=== PATIENT | male | born 1950 | race Caucasian/White ===

== ENCOUNTER → 2016-12-25 | Day surgery (SDC) | payer BC ==
[2016-12-18 11:44] VITALS: Ht 185.4 cm; Wt 70.5 kg
[~2016-12-25] VITALS: Ht 185.4 cm; Wt 70.5 kg
[~2016-12-25] MED LIST: LIDOCAINE HCL 2% 2 ML VIAL (20MG/ML) ONE; LVT/20 PO; ONDANSETRON INJ 2 MG/ML 2 ML VIAL ONE; PROPOFOL IV EMULSION 10 MG/ML 20 ML VIAL IV ONE; SODIUM CHLORIDE 0.9% 500ML 500 ML IV ONE
[2016-12-25 08:42] VITALS: TEMP 36.2
--- NOTE | 2016-12-25 09:27 | Endo History and Physical ---
History & Physical Date of Service: Dec 25, 2016. Chief Complaint: history of tubular adenoma, Family history of colon cancer (Mother) Referring Physician: Dr. Leonid Maldonado History of Present Illness 66 yo CM who presents for colonoscopy secondary to history of colon polyps and family history of colon cancer (mother). Past Surgical History Hx Cardiac Surgery: No Hx Internal Defibrillator: No Hx Pacemaker: No Hx Abdominal Surgery: No Hx of Implantable Prosthesis: No Hx Post-Op Nausea and Vomiting: No Hx Cancer Surgery: No Hx Thoracic Surgery: No Hx Orthopedic: No Hx Urinary Tract Surgery: No Family History Colon CA Social History Smoking Status: Never Smoker Hx Substance Use: No Hx Alcohol Use: No Allergies Coded Allergies: No Known Allergies (Verified , 12/25/16) Current Medications Reported Home Medications Medications Dose Route/Sig Max Daily Dose Days Date Category Levitra (Vardenafil HCl) 20 Mg Tab 20 Mg PO DIRECTED PRN 12/18/16 Reported Vital Signs Weight (Kilograms): 70.45 Height (Feet): 6 Height (Inches): 1 Date Time Temp Pulse Resp B/P Pulse Ox O2 Delivery O2 Flow Rate FiO2 12/25/16 08:42 36.2 82 20 151/94 99 Room Air Physical Exam General Appearance: WD/WN, no apparent distress Respiratory/Chest: Auscultation: breath sounds normal Cardiovascular: Heart Auscultation: RRR Abdomen: Bowel Sounds: normal Inspection & Palpation: soft, non-distended, no tenderness, guarding & rebound Assessment and Plan Assessment: 66 yo CM who presents for colonoscopy secondary to history of colon polyps and family history of colon cancer (mother). Plan: Proceed with colonoscopy.
--- NOTE | 2016-12-25 09:44 | Discharge Instructions ---
Endoscopy Patient Instructions Date / Procedure(s) Performed Dec 25, 2016. Colonoscopy Allergy Information Coded Allergies: No Known Allergies (Verified , 12/25/16) Discharge Date / Findings Dec 25, 2016. Colon polyp Internal hemorrhoids Medication Instructions OK to resume all medications today as prescribed Reported Home Medications Medications Dose Route/Sig Max Daily Dose Days Date Category Levitra (Vardenafil HCl) 20 Mg Tab 20 Mg PO DIRECTED PRN 12/18/16 Reported Provider Instructions Activity Restrictions - No exercising or heavy lifting for 24 hours. - Do not drink alcohol the day of the procedure. - Do not drive a car or operate machinery until the day after the procedure. - Do not make any important decisions or sign important papers in 24 hours after the procedure. Following Day: - Return to full activity which may include returning to work/school. Diet Start your diet with liquids and light foods (jello, soup, juice, toast). Then eat your usual diet if not nauseated. Treatment For Common After Affects For mild abdominal pain, bloating, or excessive gas: - Rest - Eat lightly - Lie on right side Follow-Up Information Follow-up with Dr. Leonid Maldonado as scheduled Anesthesia Information What You Should Know You have had a procedure that required some medicine to reduce anxiety and discomfort. This treatment is called moderate sedation. After receiving the treatment, you may be sleepy, but you will be able to breathe on your own. The effects of the treatment may last for several hours. Follow these instructions along with Activity/Diet recommendations noted above: * Do NOT do anything where dizziness or clumsiness would be dangerous. * Rest quietly at home today, then you can be up and about tomorrow. * Have a responsible person stay with you the rest of today. * You may have had an I.V. today. If so, you may take the dressing off later today. Recommendations Call your doctor if: * Trouble breathing * Continuous vomiting for more than 24 hours * Temperature above 101 degrees * Severe abdominal pain or bloating * Pain not relieved by pain medicine ordered * There is increased drainage or redness from any incision * A large amount of rectal bleeding greater than 2-3 tablespoons. (If you had a polyp/s removed or have hemorrhoids, a small amount of blood - from the rectum is to be expected.) * You have any unanswered questions or concerns. IN THE EVENT OF A SERIOUS EMERGENCY, GO TO THE NEAREST EMERGENCY ROOM Your discharge instructions were prepared by provider Yusuf Enamorado. Patient Instructions Signature Page Dean Thapa Patient (or Guardian) Signature/Date: I have read and understand the instructions given to me by my caregivers. Caregiver/RN/Doctor Signature/Date: The above-named patient and/or guardian has received patient instructions on this date. + Original Patient Signature Page (only) stays with chart. Please make copy for patient.
--- NOTE | 2016-12-25 09:47 | GI REPORT ---
Procedure Date: 12/25/2016 9:14 AM Procedure: Colonoscopy Indications: High risk colon cancer surveillance: Personal history of colonic polyps, Family history of colon cancer in a first-degree relative Medicines: Monitored Anesthesia Care Complications: No immediate complications. Estimated Blood Loss: Estimated blood loss: none. Procedure: Pre-Anesthesia Assessment: - Prior to the procedure, a History and Physical was performed, and patient medications and allergies were reviewed. The patient's tolerance of previous anesthesia was also reviewed. The risks and benefits of the procedure and the sedation options and risks were discussed with the patient. All questions were answered, and informed consent was obtained. Prior Anticoagulants: The patient has taken no previous anticoagulant or antiplatelet agents. ASA Grade Assessment: II - A patient with mild systemic disease. After reviewing the risks and benefits, the patient was deemed in satisfactory condition to undergo the procedure. After I obtained informed consent, the scope was passed under direct vision. Throughout the procedure, the patient's blood pressure, pulse, and oxygen saturations were monitored continuously. The scope was introduced through the anus and advanced to the terminal ileum. The colonoscopy was performed without difficulty. The patient tolerated the procedure well. The quality of the bowel preparation was good. The terminal ileum, ileocecal valve, appendiceal orifice, and rectum were photographed. Findings: A 5 mm polyp was found in the sigmoid colon. The polyp was sessile. The polyp was removed with a hot snare. Resection and retrieval were complete. Non-bleeding internal hemorrhoids were found during retroflexion. The hemorrhoids were small. Impression: - One 5 mm polyp in the sigmoid colon, removed with a hot snare. Resected and retrieved. - Non-bleeding internal hemorrhoids. Recommendation: - Resume previous diet. - Continue present medications. - Repeat colonoscopy for surveillance based on pathology results. - Return to primary care physician as previously scheduled. Yusuf Enamorado DO 12/25/2016 9:47:24 AM This report has been signed electronically. Note Initiated On: 12/25/2016 9:14 AM I attest to the content of the Intraoperative Record and orders documented therein, exceptions below
[2016-12-25 10:05] VITALS: BP 136/91; PULSE 63; O2SAT 98
--- NOTE | 2016-12-25 11:44 | Anesthesiology Progress Note ---
Anesthesia Post Op Note Date & Time Dec 25, 2016 at 11:44 Vital Signs Pain Intensity: 0 Vital Signs Past 12 Hours Date Time Temp Pulse Resp B/P Pulse Ox O2 Delivery O2 Flow Rate FiO2 12/25/16 10:05 63 20 136/91 98 12/25/16 09:59 62 20 121/82 12/25/16 09:49 72 16 113/65 12/25/16 08:42 36.2 82 20 151/94 99 Room Air Notes Mental Status: alert / awake / arousable, participated in evaluation Pt Amnestic to Procedure: Yes Nausea / Vomiting: adequately controlled Pain: adequately controlled Airway Patency, RR, SpO2: stable & adequate BP & HR: stable & adequate Hydration State: stable & adequate Anesthetic Complications: no major complications apparent
== END | disposition home or self-care (01) ==
LOC: C.GI 08:25
PROVIDERS: ATTEND Internal Medicine
DX: Z12.11 Encounter for screening for malignant neoplasm of colon (principal); Z86.010 Personal history of colon polyps; D12.5 Benign neoplasm of sigmoid colon; K64.8 Other hemorrhoids; Z80.0 Family history of malignant neoplasm of digestive organs; Z68.21 Body mass index [BMI] 21.0-21.9, adult

== ENCOUNTER → 2017-04-16 | Outpatient (CLI) | payer BC ==
[~2017-04-16] MED LIST changes: -LIDOCAINE HCL 2% 2 ML VIAL (20MG/ML) ONE; +MONT1TAB3 PO; -ONDANSETRON INJ 2 MG/ML 2 ML VIAL ONE; +OXYC-57 PO; -PROPOFOL IV EMULSION 10 MG/ML 20 ML VIAL IV ONE; -SODIUM CHLORIDE 0.9% 500ML 500 ML IV ONE
[2017-04-16 14:04] LABS: ESTIMATED AVERAGE GLUCOSE 108 mg/dl; HA1C FLAG Normal (Normal)
[2017-04-16 14:07] LABS: ALT/SGPT 23 U/L (12-78); AST/SGOT 16 U/L (15-37); BLOOD UREA NITROGEN 18 mg/dl (7-18); BUN/CREATININE RATIO 18.4 (10-20); CARBON DIOXIDE 26 mmol/L (21-32); CHLORIDE 106 mmol/L (98-107); CHOLESTEROL 241 mg/dl (0-200); GLUCOSE 100 mg/dl (70-99); POTASSIUM 4.8 mmol/L (3.5-5.1); SODIUM 140 mmol/L (136-145); TRIGLYCERIDES 59 mg/dl (0-150); VERY LOW DENSITY LIPOPROT CALC 12 mg/dl
[2017-04-16 14:08] LABS: CALCIUM 9.4 mg/dl (8.5-10.1)
[2017-04-16 14:18] LABS: CHOLESTEROL/HDL RATIO 2.5; HDL CHOLESTEROL 95 mg/dl; LDL CHOLESTEROL CALCULATED 134 mg/dl
[2017-04-16 14:34] LABS: LYME DISEASE AB IGG NEG (NEG)
[2017-04-16 14:37] LABS: LYME DISEASE AB IGM NEG (NEG)
== END | disposition home or self-care (01) ==
LOC: C.LAB1850 12:13
PROVIDERS: ATTEND Internal Medicine
DX: R73.9 Hyperglycemia, unspecified (principal); E78.00 Pure hypercholesterolemia, unspecified; N40.1 Benign prostatic hyperplasia with lower urinary tract symptoms; T14.8 Other injury of unspecified body region; W57.XXXA Bitten or stung by nonvenomous insect and other nonvenomous arthropods, initial encounter

== ENCOUNTER → 2017-05-15 | Outpatient (CLI) | payer BC ==
[~2017-05-15] MED LIST changes: -MONT1TAB3 PO; -OXYC-57 PO
--- NOTE | 2017-05-15 09:14 | DIAGNOSTIC IMAGING REPORT ---
ULTRASOUND LEFT GROIN NONVASCULAR CLINICAL HISTORY: Inguinal hernia. COMPARISON STUDY: No priors. FINDINGS: Real-time grayscale sonography of the right groin is performed to assess for inguinal hernia. There is a reducible fat-containing left inguinal hernia identified. No bowel is seen within the hernia. There is no left inguinal lymphadenopathy. IMPRESSION: There is a reducible fat-containing left inguinal hernia. Electronically signed by: Scottie Bonner M.D. 05/15/2017 9:13 AM Dictated Date/Time: 05/15/2017 9:12 AM
== END | disposition home or self-care (01) ==
LOC: C.ULTRBC 08:42
PROVIDERS: ATTEND Internal Medicine
DX: K40.90 Unilateral inguinal hernia, without obstruction or gangrene, not specified as recurrent (principal)

== ENCOUNTER → 2017-06-12 | Outpatient (CLI) | payer BC ==
[2017-06-12 17:13] LABS: LYME DISEASE AB IGG NEG (NEG)
[2017-06-12 17:18] LABS: LYME DISEASE AB IGM EQUIVOCAL (NEG)
[2017-06-19 05:18] LABS: 18KDIGG BAND NONREACTIVE (NONREACTIVE); 23KDIGG BAND REACTIVE (NONREACTIVE); 23KDIGM BAND REACTIVE (NONREACTIVE); 28KDIGG BAND NONREACTIVE (NONREACTIVE); 30KDIGG BAND NONREACTIVE (NONREACTIVE); 39KDIGG BAND NONREACTIVE (NONREACTIVE); 39KDIGM BAND NONREACTIVE (NONREACTIVE); 41KDIGG BAND REACTIVE (NONREACTIVE); 41KDIGM BAND NONREACTIVE (NONREACTIVE); 45KDIGG BAND REACTIVE (NONREACTIVE); 58KDIGG BAND NONREACTIVE (NONREACTIVE); 66KDIGG BAND REACTIVE (NONREACTIVE); 93KDIGG BAND NONREACTIVE (NONREACTIVE)
== END | disposition home or self-care (01) ==
LOC: C.LAB1850 11:45
PROVIDERS: ATTEND Internal Medicine
DX: T14.8 Other injury of unspecified body region (principal); W57.XXXA Bitten or stung by nonvenomous insect and other nonvenomous arthropods, initial encounter

== ENCOUNTER → 2017-06-29 | Outpatient (CLI) | payer BC ==
[~2017-06-29] VITALS: Ht 185.4 cm; Wt 70.7 kg
[2017-06-29 15:17] VITALS: BP 142/82; PULSE 78; Ht 185.4 cm; Wt 70.7 kg
== END | disposition home or self-care (01) ==
LOC: C.NEUR 14:30
PROVIDERS: ATTEND Internal Medicine Pulmonary Disease
DX: G47.33 Obstructive sleep apnea (adult) (pediatric) (principal); J30.2 Other seasonal allergic rhinitis; R06.83 Snoring

== ENCOUNTER → 2017-07-26 | Outpatient (CLI) | payer BC ==
--- NOTE | 2017-07-27 07:28 | PAP/PSG TECHNICIAN REPORT ---
[facility] Top Icer Polysomnogram Report Study name: None Report date: 07/27/2017 Study date: 07/26/2017 Referring Physician: Tyree Lee M.D. Name: VAN GOMEZ Joelle Interpreting Physician: Tyree Lee M.D. Date of : 1950 Top Icer: Isis Shah, PSGT. Sex: Male Age: 66 StudyType: PSG Weight: 155 lbs Height: 66 years, Height 6' 1" Neck Circum:15 inches BMI: 20.45 Medications: Loratadine 10 mg, Montelukast 10 mg, Levitra 10 mg. Patient History 66 yr. old male with chronic rhinitis presents to the sleep lab for a diagnostic sleep study. Pt. states that since he has started Montelukast he feels his sleep is somewhat better, he still states that he wakes gasping for air at times and he'll wake for long periods of time during the night, he will then read until he feels sleepy. He also states that he uses the restroom 6-7 times a night. He will often wake with a headache. Ess=10, Neck = 15 inches. Parameters Monitored NPSG: E1-M2, E2-M1, Fp1-M2, Fp2-M1, F3-M2, F4-M2, F4-M1, C3-M2, C4-M2, C4-M1, O1-M2, O2-M2, O2-M1, T3-M2, T4-M1, P3-M2, P4-M1, CHIN1, CHIN2, HR, EKG, Legs, PFLOW, SNOR, FLOW, CFLOW, Tidal Volume, THOR, ABDO, SpO2, PLTH, CPRESS, ETCO2 Wave, ETCO2, pH Sleep Architecture Sleep Stages Time at Lights Off 10:29:52 PM STAGES Time (min.) TST (%) Time at Lights On 5:35:22 AM Wake 369.5 -- Total Recording Time (TRT) 424.00 min. N1 12.5 23 Total Sleep Period (TSP) 246.0 min. N2 42.0 77 Total Sleep Time (TST) 54.5min. N3 0.0 0 Awake Time 369.5 min. REM 0.0 0 Wake after Sleep Onset 226.5 min. Sleep Efficiency (SE) 13 % Sleep Onset Latency (KATLIN) 144.5 min. Number of Stage 1 Shifts None Awakenings 12 Stage Changes 38 Number of REM periods N/A REM 0.0 0 REM Latency NONE min. NREM 54.5 100 Body Position Analysis Supine Right Left Side Prone Vertical Total Sleep Time (min.) 289.3 0.0 0.0 0.00 86.8 1.5 Total Sleep Time (%) 74% 0% 0% 0 26% N/A% Total Sleep Time REM (min.) 0.0 0.0 0.0 None 0.0 0.0 Total Sleep Time NREM (min.) 40.5 0.0 0.0 None 14.0 0.0 Intermittent Wake (min.) 248.8 46.3 0.0 None 72.8 1.5 Total Sleep Period (%) 65% None None None None None Arousals Myoclonus (PLM) * Events Count Index Events Count Index Spontaneous 22 24 Events Awake (PLMW) 2 0.3 Respiratory 1 1.1 Events Asleep w/ Arousal (PLMA) 3 3.3 PLM 3 3 Events Asleep w/o Arousal (PLMS) 13 14.3 Snoring 0 0 Total Asleep 16 17.6 Total 26 29 Total 18 3 Respiratory Analysis * CA OA MA CH H RERA Total Count 0 1 0 0 7 0 8 Index 0.0 1.1 0.0 0 7.7 0 8.8 Mean Duration 0.0 33.1 0.0 0.00 22.4 0.0 23.8 Longest Duration 0.0 33.1 0.0 0.00 0.0 0.0 33.1 Respiratory Event Summary Total Supine ~Supine Right Left Prone REM NREM Apneas Count 1 1 0 N/A N/A 0 N/A 1 Index 1.1 1 0 N/A N/A 0 N/A 1 Hypopneas (4% Desat) Count 7 7 0 N/A N/A 0 N/A 7 Index 7.7 10.4 0 N/A N/A 0.0 N/A 7.7 Apneas & All Hypopneas Count 8 8 0 N/A N/A 0 N/A 8 Index 8.8 12 0 N/A N/A 0 N/A 8.8 Respiratory Events (Sheet Pile Driver Operator+All Hyp+RERA) Count 8 8 0 N/A N/A 0 N/A 8 Index 8.8 12 0 N/A N/A 0.0 N/A 8.8 Respiratory Related Arousal Count 1 8 0 N/A N/A 0 N/A 1 Index 1.1 1 0 N/A N/A 0 N/A 1 Snoring Analysis Supine Right Left Prone REM NREM Total Snore duration 0.4 min Snores count 12 N/A N/A 0 N/A 12 12 Snore mean duration 2.0 Sec Snores index 18 N/A N/A 0 N/A 13.2 13.2 TST with snoring (%) 0.7% Desaturation Event Summary: Minimum %SpO2 Event Count Mean/Min/Max Duration(sec.) Desaturation Index % Time In Bed > 90 7 39.8 / 25.5 / 59.8 1.0 98.2 86 - 90 0 N/A 0.0 1.7 81 - 85 0 N/A 0.0 0.0 76 - 80 0 N/A 0.0 0.0 71 - 75 0 N/A 0.0 0.0 66 - 70 0 N/A 0.0 0.0 61 - 65 0 N/A 0.0 0.0 56 - 60 0 N/A 0.0 0.0 51 - 55 0 N/A 0.0 0.0 < 50 0 N/A 0.0 0.0 Total REM NREM Awake <50% 0.0 min. 0.0 min. 0.0 min. 0.0 min. 51 - 60% 0.0 min. 0.0 min. 0.0 min. 0.0 min. 61 - 70% 0.0 min. 0.0 min. 0.0 min. 0.0 min. 71 - 80% 0.2 min. 0.0 min. 0.0 min. 0.2 min. 81 - 90% 7.2 min. 0.0 min. 1.9 min. 5.3 min. 91 - 100% 406.2 min. 0.0 min. 52.6 min. 353.6 min. Average 94 0 93 94 Minimum SpO2 75 N/A 89 75 Desaturation Event Index 1.0 0.0 7.7 0.0 # Desat. Events below 89% 1 N/A 1 0 Time(%) with Saturation below 89% 0.2 0.0 0.0 0.2 Time(min.) with Saturation below 89% 0.8 0.0 0.0 0.8 Time (mins) REM (mins) NREM (mins) % of TST SpO2 Below 90% 7 N/A N7 0.5 SpO2 Below 88% 0 0 0 0 Heart Rate Analysis Min (bpm) Max (bpm) Average (bpm) Awake 47 225 67 NREM 53 76 63 REM N/A N/A N/A Overall 53 76 63 Supplemental O2 Values Minimum O2 level: None Value Start Time End Time Top Icer Comments PSG Study Mr. Gomez slept in the right, supine and prone positions. No cardiac arrhythmia or PLM's noted. No bruxism noted. Mr. Gomez awoke to use the urinal 9 times during the night. Mr. Gomez stated, that he was up to use the urinal more than at home. He did not sleep much at all he was out of bed often, and he requested the lights to be on so he could read twice for a hour or more each time. At 4 am he called me into the room and stated that he no longer thought he would sleep at all, he wanted to read some more. He also stated at that time the bed was the worst he ever slept in and that was the reason he couldn't sleep. The final report will be interpreted and signed by a sleep physician. The completed physician report will then be placed in the patient medical record. Therapy (cm H2O) 0 TIB (min.) 424.0 TST (min.) 54.5 Sleep Onset (min.) 144.5 REM Onset From Sleep (min.) NONE Sleep Efficiency % 13 Wakefulness (%) 87 Wakefulness (min.) 369.5 NREM 1 (%) 23 NREM 1 (min.) 12.5 NREM 2 (%) 77 NREM 2 (min.) 42.0 NREM 3 (%) 0 NREM 3 (min.) 0.0 REM (%) 0 REM (min.) 0.0 # Arousals 26 Arousal Index 29 # Snore 12 Snore Index 13.2 AHI 8.8 AHI Supine 12 AHI Non-Supine 0 NREM AHI 8.8 REM AHI N/A RDI 8.8 # Obstructive Apnea 1 # Central Apnea 0 # Mixed Apnea 0 # Hypopneas 7 RERAs 0 Total Respiratory Events 8 Time Below SpO2 89% (min.) 0.0 Mean NREM SpO2 (%) 93 Mean REM SpO2 (%) N/A Mean Sleep SpO2 (%) 93 Min NREM SpO2 (%) 89 Min REM SpO2 (%) N/A Position Supine (min.) 289.3 Position Non-supine (min.) 14.0 LM Index Sleep 17.6 LM Index NREM 17.6 LM Index REM N/A Mean Heart Rate (bpm) 63 Min Heart Rate (bpm) 53
--- NOTE | 2017-07-27 18:33 | POLYSOMNOGRAPH REPORT ---
CLINICAL DATA: A 66-year-old male with BMI of 20.5, referred for a sleep study. He is gasping for air at times and will be awake for long periods of time during the night. Then he reads until he feels sleepy. He also gets up to use the restroom 6-7 times per night and also awakens with a headache. His [place] sleepiness score is 10/24. He has been doing better since starting on Montelukast 10 mg daily. SLEEP ARCHITECTURE: Total recording time was 424 minutes. Total sleep period was 246 minutes. Total sleep time was only 54.5 minutes, all non-REM sleep. Sleep onset latency was markedly prolonged at 144.5 minutes. Sleep efficiency was severely reduced at 13%. Wake after sleep onset was 226.5 minutes. Sleep consisted of stage N1 23% and stage N2 77%. AROUSAL DATA: 26 arousals were recorded for an index of 29 per hour. 22 were spontaneous arousals. PLM DATA: 16 limb movements during sleep were noted for an index of 17.6 per hour with arousal index of 3.3 per hour. RESPIRATORY DATA: Mild sleep apnea was seen in this very limited study. There was 1 obstructive apneic episode 33.1 seconds in duration. There were 7 hypopneic episodes with mean duration of 22.4 seconds. The AHI was 8.8. OXIMETRY DATA: No hypoxemia was seen. Oxygen adela was 89% during non-REM sleep. Mean saturation was 94%. EKG: Heart rates ranged from 53-76 beats per minute. No arrhythmias were noted. PAN WASHER'S COMMENTS: The patient slept in the right, supine, and prone positions. He awoke to use the urinal 9 times during the night. He did not sleep much and requested that the lights be on, so he could read twice for an hour or more. At 4 a.m., he called the outside plant technician to the room and stated he could no longer sleep at all. He stated that the bed was the worst he ever slept in and that was the reason he could not sleep. IMPRESSION: Very mild sleep apnea/hypopnea on this very limited sleep study. It is difficult to determine if this is an accurate result or not since the patient slept for less than 1 hour. RECOMMENDATIONS: The patient will be seen back in the clinic for followup and further recommendations. He may need to have a home sleep study performed. PIEDAD
== END | disposition home or self-care (01) ==
LOC: C.NEUR 20:00
PROVIDERS: ATTEND Internal Medicine Pulmonary Disease
DX: J30.2 Other seasonal allergic rhinitis (principal); G47.30 Sleep apnea, unspecified

== ENCOUNTER → 2017-08-07 | Outpatient (CLI) | payer BC ==
[~2017-08-07] VITALS: Ht 185.4 cm; Wt 71.1 kg
[2017-08-07 14:11] VITALS: BP 133/84; PULSE 54; Ht 185.4 cm; Wt 71.1 kg
== END | disposition home or self-care (01) ==
LOC: C.NEUR 12:00
PROVIDERS: ATTEND Physician Assistant Medical
DX: G47.33 Obstructive sleep apnea (adult) (pediatric) (principal); J30.2 Other seasonal allergic rhinitis; N40.1 Benign prostatic hyperplasia with lower urinary tract symptoms; N13.8 Other obstructive and reflux uropathy; E78.00 Pure hypercholesterolemia, unspecified; R73.9 Hyperglycemia, unspecified

== ENCOUNTER → 2017-08-20 | Outpatient (CLI) | payer BC ==
--- NOTE | 2017-08-24 01:41 | POLYSOMNOGRAPH REPORT ---
CLINICAL DATA: A 66-year-old male with BMI of 20.[address] Joel Moreira and myself for evaluation of sleep apnea. He has frequent awakenings at night and waking up feeling short of breath. An in-lab study was limited to less than 1 hour sleep. On the evening of 08/20/2017, a home sleep apnea test was performed using a Prevoty type 3 monitor. RECORDING RESULTS: Total recording time was 10 hours. The patient's monitoring time and estimated sleep time was 8.1 hours. RESPIRATORY DATA: Mild sleep apnea was documented. The SLOAN was 14.4. There were 62 obstructive and 12 central apneic episodes. There were 42 hypopneic episodes. The longest respiratory event was 74 seconds. OXIMETRY DATA: Mild hypoxemia was seen. Oxygen adela was 85%. Mean saturation was 95%. Time below 89% was 3 minutes. HEART RATE DATA: Heart rates ranged from 47-56 beats per minute. SNORING DATA: Snoring was recording throughout the night. DENTAL CLAIMS PROCESSOR'S COMMENTS: Hypopneas and apneas were seen primarily when the patient was lying supine. IMPRESSION: Mild sleep apnea/hypopnea with an SLOAN of 14.4 with transient nocturnal hypoxemia. The majority of these episodes occurred while supine. RECOMMENDATIONS: The patient would benefit from use of auto-CPAP, repeat sleep study with CPAP with use of a sleeping medication on the night of that study, or use of an oral appliance.
== END | disposition home or self-care (01) ==
LOC: C.NEUR 08:56
PROVIDERS: ATTEND Internal Medicine Pulmonary Disease
DX: G47.33 Obstructive sleep apnea (adult) (pediatric) (principal)

== ENCOUNTER → 2017-10-08 | Outpatient (CLI) | payer BC ==
[~2017-10-08] MED LIST changes: +OXYC-57 PO
--- NOTE | 2017-10-08 14:56 | DIAGNOSTIC IMAGING REPORT ---
(CHEST) THORAX WITHOUT CT DOSE: 237.29 mGycm CLINICAL HISTORY: 66 years-old Male with R91.1 Pulmonary [id number] mm left lower lobe nodule found on pre-. Pulmonary nodule of the left lower lobe seen on comparison chest radiograph. TECHNIQUE: Multiaxial CT images of the chest were performed without contrast. A dose lowering technique was utilized adhering to the principles of ALARA. COMPARISON: Chest radiograph 10/04/2017. FINDINGS: Thyroid is homogeneous. There is no pathologic adenopathy of the chest identified. Heart is normal in size without pericardial effusion. Thoracic aorta is normal in both course and caliber. There is no pneumothorax, pleural effusion, focal airspace consolidation or overt pulmonary edema. Linear subsegmental pleural based opacities of the right upper lobe suggest areas of scarring. Small perifissural lymph node abuts the minor fissure seen on image 163 series 4. There is a lobular soft tissue attenuating nodule of the anteromedial basal segment left lower lobe seen on image 232 series 4 which measures 1.3 x 1.3 x 1.5 cm. Evaluation is somewhat limited secondary to respiratory motion. Additionally, there is a pleural-based 5 mm solid nodule of the free segment lingula seen on image 213 series 4. 6 mm solid nodule of the left lower lobe is noted on image 260 series 4. The central airways are patent. Imaged upper abdominal structures are within normal limits. Soft tissues are unremarkable. Bones appear intact. Facet arthropathy of the lower cervical spine partially imaged. Mild multilevel degenerative changes of the spine. IMPRESSION: 1. No acute intrathoracic abnormality identified. 2. Lobular soft tissue attenuating solid nodule of the anteromedial basal segment left lower lobe measures up to 1.5 cm correlating with the finding seen on comparison chest radiograph. Additional nodules of the lingula and left lower lobe are seen as above measuring up to 6 mm. Please refer to the chart below for management guidelines of pulmonary nodules. 3. No pathologic-appearing adenopathy. Please refer to below summary of Fleischner criteria recommendations for follow-up of incidental CT nodules (Kane Solis, Guidelines for management of small pulmonary nodules detected on CT scans: A statement from the Fleischner Society, Radiology 237: [phone].) SOLID NODULES Solitary nodule size: <6 mm * Low risk patients: no follow-up needed * high risk patients: optional CT at 12 months Solitary nodule size: 6-8 mm * Low risk patients: follow-up at 6-12 months, then consider further follow-up at 18-24 months * high risk patients: initial follow-up CT at 6-12 months and then at 18-24 months if no change Solitary nodule size: >8 mm * either low or high risk patients - consider follow-up CT at 3 months, and/or CT-PET, and/or biopsy Multiple nodules size: <6 mm * Low risk patients: no routine follow-up * high risk patients: optional CT at 12 months Multiple nodules size: 6-8 mm * Low risk patients: follow-up at 3-6 months, then consider further follow-up at 18-24 months * high risk patients: follow-up at 3-6 months, then at 18-24 months if no change Multiple nodules size: >8 mm * Low risk patients: follow-up at 3-6 months, then consider further follow-up at 18-24 months * high risk patients: follow-up at 3-6 months, then at 18-24 months if no change Note: newly detected indeterminate nodule in persons 35 years of age or older. * Low risk patients: minimal or absent history of smoking and/or other known risk factors * high risk patients: history of smoking or of other known risk factors (e.g. first degree relative with lung cancer, or exposure to asbestos, radon, uranium) * if a nodule up to 8 mm is partly solid or is ground glass further follow-up is required after 24 months to exclude possible slow growing adenocarcinoma (LINNEA) The above report was generated using voice recognition software. It may contain grammatical, syntax or spelling errors. Electronically signed by: Jeff Collier M.D. 10/08/2017 2:54 PM Dictated Date/Time: 10/08/2017 2:47 PM
== END | disposition home or self-care (01) ==
LOC: C.CTS 13:52
PROVIDERS: ATTEND Surgery
DX: R91.1 Solitary pulmonary nodule (principal)

== ENCOUNTER → 2017-10-10 | Day surgery (SDC) | payer BC ==
--- NOTE | 2017-10-04 08:49 | PAT Medication Instructions ---
Service Date Oct 04, 2017. Current Home Medication List Montelukast Sodium (Singulair), 10 MG PO PRN Vardenafil (Levitra), 10 MG PO DIRECTED PRN for PRN Medication Instructions For Your Scheduled Surgery Montelukast Sodium (Singulair), 10 MG PO PRN (no longer takes per patient) - Hold the following medications the morning of surgery: Vardenafil (Levitra), 10 MG PO DIRECTED PRN for PRN(if needed) If you have any questions please call us at [phone] or [phone] or [phone]
--- NOTE | 2017-10-04 09:54 | DIAGNOSTIC IMAGING REPORT ---
CHEST 2 VIEWS ROUTINE CLINICAL HISTORY: 66 years-old Male presenting with preadmission testing. TECHNIQUE: PA and lateral views of the chest were obtained. COMPARISON: None. FINDINGS: Cardiomediastinal silhouette normal. 15 mm nodule in the left lower lobe. No other focal infiltrate. No pleural effusion or pneumothorax. Osseous structures normal. Upper abdomen normal. IMPRESSION: 1. 15 mm nodule in the left lower lobe. Further evaluation with chest CT is necessary. The report will be called/faxed according to standard departmental protocol. Electronically signed by: Clayton Walker M.D. 10/04/2017 9:53 AM Dictated Date/Time: 10/04/2017 9:51 AM
[2017-10-04 10:01] LABS: BUN/CREATININE RATIO 21.8 (10-20); CALCIUM 9.3 mg/dl (8.5-10.1); CREATININE 0.86 mg/dl (0.60-1.40); POTASSIUM 3.8 mmol/L (3.5-5.1)
[2017-10-04 10:02] LABS: BASO % 0.7 %; BASO ABS # 0.03 K/uL (0-0.2); COMPLETE YES; EOS % 1.8 %; LYMPH % 37.1 %; LYMPH ABS # 1.61 K/uL (1.2-3.4); MEAN CELL VOLUME 100.2 fL (80-100); MEAN CORPUSCULAR HEMOGLOBIN 32.4 pg (25-34); MEAN CORPUSCULAR HGB CONC 32.3 g/dl (32-36); MEAN PLATELET VOLUME 10.2 fL (7.4-10.4); MONO % 11.8 %; NEUT % 48.6 %; PLATELET COUNT 187 K/uL (130-400); RED BLOOD COUNT 4.69 M/uL (4.7-6.1); WHITE BLOOD COUNT 4.34 K/uL (4.8-10.8)
[2017-10-04 10:03] LABS: ALB/GLOB RATIO 1.3 (0.9-2)
[2017-10-10] VITALS (7 sets, daily range): BP systolic 114–140; BP diastolic 58–88; PULSE 61–80; TEMP 36.5–36.6; O2SAT 93–99; Ht 185.4 cm; Wt 71.3 kg
[~2017-10-10] VITALS: Ht 185.4 cm; Wt 71.3 kg
[~2017-10-10] MED LIST changes: +ATROPINE SULFATE 0.1 MG/ML 5ML SYR IV PRN; +BUPIVACAINE 0.5 % 5 MG/1 ML MPF 30ML VIAL ONE; +CEFAZOLIN 2000MG IV PUSH 10 ML IV SCH; +DEXAMETHASONE SOD INJ 4 MG/ML VIAL ONE; +EpHEDrine SULFATE 50MG/5ML SYR ONE; +EpHEDrine SULFATE INJ 50 MG/ML AMP IV PRN; +EpHEDrine SULFATE INJ 50 MG/ML AMP ONE; +FENTANYL CITRATE INJ 50 MCG/1 ML 2 ML VIAL IV PRN; +FENTANYL CITRATE INJ 50 MCG/1 ML 2 ML VIAL ONE; +GLYCOPYRROLATE INJ 0.2 MG/ML VIAL ONE; +HYDROmorphone INJ 1 MG/ML SYR IV PRN; +LACTATED RINGER'S 1000ML 1,000 ML IV SCH; +LIDOCAINE HCL 2% 2 ML VIAL (20MG/ML) ONE; +MIDAZOLAM HCL 1 MG/ML 2ML VIAL ONE; +MoRPHine SULFATE 4 MG/ML 1 ML CARP\\VIAL IV PRN; +NEOSTIGMINE METHYLSULFATE 5 MG/5 ML SYR ONE; +ONDANSETRON INJ 2 MG/ML 2 ML VIAL IV PRN; +ONDANSETRON INJ 2 MG/ML 2 ML VIAL ONE; +OXYCODONE/ACETAMINOPHEN 5-325 TAB PO PRN; +PHENYLEPHRINE HCL INJ 10 MG/ML VIAL ONE; +PROPOFOL IV EMULSION 10 MG/ML 20 ML VIAL IV ONE; +ROCURONIUM BROMIDE 10 MG/ML 5 ML VIAL IV ONE; +SUCCINYLCHOLINE CHLORIDE 20 MG/ML 10 ML VIAL IV ONE
--- NOTE | 2017-10-10 08:45 | History & Physical Bridge Note ---
H&P Re-Evaluation Bridge Note: I have examined the patient, reviewed the History & Physical and in the interval since the performance of the History & Physical I have noted the following changes of clinical significance: Patient had lung nodule on cxray, had CT chest with non concerning nodule, needs follow up CT scan in 6 months. No other changes noted
--- NOTE | 2017-10-10 10:18 | Discharge Instructions ---
Discharge Instructions Date of Service Oct 10, 2017. Visit Reason for Visit: Left Inguinal Hernia Discharge Discharge Diagnosis / Problem: laparoscopic hernia repair Discharge Goals Goal(s): Decrease discomfort Activity Recommendations Activity Limitations: as noted below Lifting Limitations: no more than 10 pounds Shower/Bathe: no limitations (ok to shower) Driving or Machine Use: when pain free Anesthesia . Post Anesthesia Instructions: If you have had General Anesthesia or IV Sedation: * Do not drive today. * Resume driving when surgeon permits. * Do not make important decisions or sign legal documents today. * Call surgeon for: 1. Temperature elevations greater than 101 degrees F. 2. Uncontrollable pain. 3. Excessive bleeding. 4. Persistent nausea and vomiting. 5. Medication intolerance (nausea, vomiting or rash). * For nausea and vomiting use only clear liquids such as: tea, soda, bouillon until nausea subsides, then gradually increase diet as tolerated. * If you have any concerns or questions, call your surgeon's office. If physician is unavailable and it is an emergency, call 911 or go to the nearest emergency room. . Instructions / Follow-Up Instructions / Follow-Up Dr. Aguayo in 2 weeks as planned, call [phone] for any questions Diet Recommendations Recommended Home Diet: no limitations Procedures Procedures Performed: Bilateral Laparoscopic Inguinal Hernia Repair with Mesh Pending Studies Studies pending at discharge: no Medical Emergencies . Who to Call and When: Medical Emergencies: If at any time you feel your situation is an emergency, please call 911 immediately. . Non-Emergent Contact Non-Emergency issues call your: Surgeon Call Non-Emergent contact if: you have a fever, temperature is above 101.5, your pain is not controlled, you have any medication questions . . "Provider Documentation" section prepared by Cuong Smallwood. .
--- NOTE | 2017-10-10 10:28 | [facility] Operative Report ---
Operative Report Operative Date Oct 10, 2017. Pre-Operative Diagnosis Non-Recurrent Bilateral Inguinal Hernia Post-Operative Diagnosis bilateral direct inguinal hernias Procedure(s) Performed Laparoscopic TEP bilateral inguinal hernia repairs mesh Surgeon Chambers Clinical Biochemist Surgeon(s) Damien Smallwood PA-C Estimated Blood Loss 3cc Findings Bilateral direct inguinal hernias Specimens None as per Surgeon Drains None Anesthesia GETA Complication(s) None Disposition Recovery Room / PACU Indications 66-year-old male with reducible symptomatic left inguinal hernia plan for laparoscopic left inguinal hernia repair, possible right. The risks of the procedure were discussed, all questions were answered, and the patient agreed to proceed with surgery as planned. Description of Procedure The patient was properly identified, consented, and taken to the operating room where he was placed in the supine position. General endotracheal anesthesia was induced. SCDs and a safety belt were placed. A argueta catheter was placed. Preoperative antibiotics were administered. The patient's groins and abdomen were prepped and draped in the standard sterile fashion. Surgical timeout was performed and all parties were in agreement that this was the correct patient and procedure to be performed and we continued as planned. A transverse infraumbilical incision was made to the right of midline with electrocautery and deepened down to the fascia with blunt dissection. A transverse incision was made in the anterior rectus sheath on the right. The rectus muscle was pulled laterally exposing the posterior rectus sheath. A large Nadeen was used to bluntly dissect the preperitoneal space down to the pubic symphysis. This was then replaced with a laparoscopic preperitoneal dissection balloon, which was inflated under direct visualization and held in place for approximately 30 seconds. This was then removed and the preperitoneal space was insufflated with carbon dioxide which the patient tolerated without incident. Two 5 mm ports were then placed in the midline. Dissection started on the left, beginning laterally at the anterior superior iliac spine. Kennedy's ligament was then dissected medially. The cord structures were circumferentially dissected. A moderate sized direct inguinal hernia defect was noted, and the hernia was already reduced. The peritoneum was dissected away from the cord structures. The contralateral side was then dissected in a similar manner, and a moderate sized direct inguinal hernia defect was noted. The hernia was already reduced, the peritoneum was dissected away from the cord structures and no indirect hernia was identified. Progrip mesh was placed bilaterally and covered the direct, indirect, and femoral spaces. The mesh was held in place, the ports were removed, and the space was allowed to collapse. The anterior rectus sheath fascia was closed with 0 Vicryl suture. The skin of all port sites were closed with 4-0 Monocryl subcuticular suture, and Dermabond was placed over the incisions. The patient was extubated in the operating room and taken to the PACU for recovery without apparent incident. Any air in the scrotum was reduced, and the testicles were confirmed to be in the scrotum. All sponge, instrument, and needle counts were correct at the conclusion of the procedure. The patient tolerated the procedure well. I attest to the content of the Intraoperative Record and any orders documented therein. Any exceptions are noted below.
--- NOTE | 2017-10-10 10:47 | Anesthesiology Progress Note ---
Anesthesia Post Op Note Date & Time Oct 10, 2017 at 10:47 Vital Signs Pain Intensity: 0 Vital Signs Past 12 Hours Date Time Temp Pulse Resp B/P (MAP) Pulse Ox O2 Delivery O2 Flow Rate FiO2 10/10/17 10:45 36.2 68 15 132/80 97 Room Air 10/10/17 10:35 69 15 136/85 100 Oxymask 5 10/10/17 10:25 69 15 132/83 99 Oxymask 5 10/10/17 10:16 36.1 74 15 148/86 99 Oxymask 10 10/10/17 07:24 36.6 80 20 130/88 (102) 99 Room Air Notes Mental Status: alert / awake / arousable, participated in evaluation Pt Amnestic to Procedure: Yes Nausea / Vomiting: adequately controlled Pain: adequately controlled Airway Patency, RR, SpO2: stable & adequate BP & HR: stable & adequate Hydration State: stable & adequate Anesthetic Complications: no major complications apparent
== END | disposition home or self-care (01) ==
LOC: C.ACU 06:35
PROVIDERS: ATTEND Surgery
DX: K40.20 Bilateral inguinal hernia, without obstruction or gangrene, not specified as recurrent (principal); N40.0 Benign prostatic hyperplasia without lower urinary tract symptoms; G47.33 Obstructive sleep apnea (adult) (pediatric); N41.1 Chronic prostatitis; E78.00 Pure hypercholesterolemia, unspecified; N52.9 Male erectile dysfunction, unspecified; Z80.0 Family history of malignant neoplasm of digestive organs; Z80.42 Family history of malignant neoplasm of prostate; Z80.1 Family history of malignant neoplasm of trachea, bronchus and lung; E78.5 Hyperlipidemia, unspecified; E80.4 Gilbert syndrome

== ENCOUNTER → 2017-10-17 | Outpatient (CLI) | payer BC ==
[~2017-10-17] MED LIST changes: -ATROPINE SULFATE 0.1 MG/ML 5ML SYR IV PRN; -BUPIVACAINE 0.5 % 5 MG/1 ML MPF 30ML VIAL ONE; -CEFAZOLIN 2000MG IV PUSH 10 ML IV SCH; -DEXAMETHASONE SOD INJ 4 MG/ML VIAL ONE; -EpHEDrine SULFATE 50MG/5ML SYR ONE; -EpHEDrine SULFATE INJ 50 MG/ML AMP IV PRN; -EpHEDrine SULFATE INJ 50 MG/ML AMP ONE; -FENTANYL CITRATE INJ 50 MCG/1 ML 2 ML VIAL IV PRN; -FENTANYL CITRATE INJ 50 MCG/1 ML 2 ML VIAL ONE; -GLYCOPYRROLATE INJ 0.2 MG/ML VIAL ONE; -HYDROmorphone INJ 1 MG/ML SYR IV PRN; -LACTATED RINGER'S 1000ML 1,000 ML IV SCH; -LIDOCAINE HCL 2% 2 ML VIAL (20MG/ML) ONE; -MIDAZOLAM HCL 1 MG/ML 2ML VIAL ONE; -MoRPHine SULFATE 4 MG/ML 1 ML CARP\\VIAL IV PRN; -NEOSTIGMINE METHYLSULFATE 5 MG/5 ML SYR ONE; -ONDANSETRON INJ 2 MG/ML 2 ML VIAL IV PRN; -ONDANSETRON INJ 2 MG/ML 2 ML VIAL ONE; -OXYCODONE/ACETAMINOPHEN 5-325 TAB PO PRN; -PHENYLEPHRINE HCL INJ 10 MG/ML VIAL ONE; -PROPOFOL IV EMULSION 10 MG/ML 20 ML VIAL IV ONE; -ROCURONIUM BROMIDE 10 MG/ML 5 ML VIAL IV ONE; -SUCCINYLCHOLINE CHLORIDE 20 MG/ML 10 ML VIAL IV ONE
[2017-10-17 12:17] LABS: URINE APPEARANCE CLEAR (CLEAR); URINE BILIRUBIN NEG (NEG); URINE COLOR YELLOW; URINE NITRITE NEG (NEG); URINE PH 5.5 (4.5-7.5); URINE SPECIFIC GRAVITY 1.026 (1.000-1.030); UROBILINOGEN NEG (NEG)
[2017-10-17 12:21] LABS: MANUAL MICROSCOPIC REQUIRED? NO; REVIEW REQ? NO
== END | disposition home or self-care (01) ==
LOC: C.LAB 10:26
PROVIDERS: ATTEND Surgery
DX: R35.0 Frequency of micturition (principal); N39.0 Urinary tract infection, site not specified

== ENCOUNTER → 2018-01-02 | Outpatient (CLI) | payer BC ==
--- NOTE | 2018-01-04 16:07 | POLYSOMNOGRAPH REPORT ---
CLINICAL DATA: A 67-year-old male with BMI of 21.[address] Maldonado and Arabella Bishop for evaluation of sleep apnea. He has a history of mild sleep apnea with inability to tolerate CPAP after using it for several months. The patient did put the equipment box on his back and slept on his stomach. He feels that he only has sleep apnea during allergy season. His [place] sleepiness score is 5/24. On the evening of 01/02/2015 , a HSAT was performed using a [employer] type 3 monitor. RECORDING RESULTS: Total recording time was 10 hours. The patient's monitoring time and estimated sleep time was 8.7 hours. RESPIRATORY DATA: Very mild sleep apnea was documented. The SLOAN was 6.9. There were 13 obstructive and 5 mixed apneic episodes. There were 42 hypopneic episodes. The longest respiratory event was 45 seconds. OXIMETRY DATA: Nocturnal hypoxemia was seen. Oxygen adela was 86%. Mean saturation was 94%. Time below 89% was 32 minutes. HEART RATE DATA: Heart rates ranged from 49-60 beats per minute. SNORING DATA: Snoring was recorded intermittently throughout the night. IMPRESSION: Mild sleep apnea/hypopnea with a respiratory event index of 6.9 with nocturnal hypoxemia. RECOMMENDATIONS: The patient may benefit from use of an oral appliance or possibly a repeat attempted a trial of use of CPAP. Clinical correlation is needed. PIEDAD
== END | disposition home or self-care (01) ==
LOC: C.NEUR 09:52
PROVIDERS: ATTEND Physician Assistant Medical
DX: G47.30 Sleep apnea, unspecified (principal)

== ENCOUNTER → 2018-06-10 | Outpatient (CLI) | payer BC ==
[~2018-06-10] MED LIST changes: +OPTIRAY 320 IV PRN; -OXYC-57 PO
--- NOTE | 2018-06-10 09:14 | DIAGNOSTIC IMAGING REPORT ---
CHEST CT WITH CONTRAST CT DOSE: 296.63 mGy.cm HISTORY: Follow-up PULMONARY NODULE TECHNIQUE: Multiaxial CT images of the chest were performed following the intravenous administration of contrast. A dose lowering technique was utilized adhering to the principles of ALARA. COMPARISON: Chest CT 10/08/2017. FINDINGS: The central airways are patent. No pleural effusions. No pneumothorax. Left apical pleural parenchymal calcifications are again noted. Stable 5 mm subpleural nodule within the lingula on image 232. Stable 6 mm subpleural nodule within the base of the left lower lobe on image 290. No significant change in the 15 x 13 mm lobular nodule within the left lower lobe on image 256. No new pulmonary nodules. No suspicious lytic or blastic osseous lesions. No mediastinal or hilar lymphadenopathy. The heart is normal in size. Normal caliber thoracic aorta. The central pulmonary arteries are patent. The visualized liver, spleen, and adrenal glands are unremarkable. IMPRESSION: 1. No significant change in the 15 x 13 mm lobular nodule within the left lower lobe. A primary bronchogenic malignancy remains the diagnosis of exclusion. PET/CT and thoracic surgery consultation is recommended. 2. Additional stable nodules at the left lung base are subcentimeter in size. 3. No new pulmonary nodules. Electronically signed by: Davonte Hollis M.D. 06/10/2018 9:13 AM Dictated Date/Time: 06/10/2018 9:03 AM
== END | disposition home or self-care (01) ==
LOC: C.CTS 08:39
PROVIDERS: ATTEND Internal Medicine Pulmonary Disease
DX: R91.1 Solitary pulmonary nodule (principal)